=== PATIENT | female | born 1985 | race Two or more races ===

== ENCOUNTER 2018-10-09 12:47 | Emergency (ER) | payer SELFPAY ==
[~2018-10-09] VITALS: Ht 167.6 cm; Wt 54.4 kg
--- NOTE | 2018-10-09 12:49 | NUR ---
PT BIB FRIEND C/O POSS ALLERGIC RXN X 1 DAY , SWOLLEN LIP, PT AAOX4, RESPIRATIONS EVEN AND UNLABORED, NO SOB, NAD NOTED, VSS, PENDING MD BARBA
[2018-10-09] MEDS ORDERED: FAMOTIDINE (20 MG) 20 MG TABLET PO ONE (13:00)
[2018-10-09] MEDS ORDERED: predniSONE 20 MG TABLET PO ONE (13:00)
[2018-10-09] MEDS ORDERED: diphenhydrAMINE HCL ELIX 25 MG/10 ML UDC PO ONE (13:00)
[2018-10-09] MEDS ORDERED: diphenhydrAMINE HCL ELIX 25 MG/10 ML UDC ONE (13:04)
[2018-10-09] MEDS ORDERED: FAMOTIDINE (20 MG) 20 MG TABLET ONE (13:04)
[2018-10-09] MEDS ORDERED: predniSONE 20 MG TABLET ONE (13:04)
--- NOTE | 2018-10-09 13:55 | NUR ---
Patient discharged to home in stable condition. Written and verbal after care instructions given. Patient verbalizes understanding of instruction.
[2018-10-09 13:56] VITALS: BP 130/80
== END 2018-10-09 13:57 | disposition home or self-care (01) ==
LOC: ER 12:48
DX: T78.1XXA Other adverse food reactions, not elsewhere classified, initial encounter (principal); R22.0 Localized swelling, mass and lump, head; Z98.890 Other specified postprocedural states; Z60.2 Problems related to living alone; X58.XXXA Exposure to other specified factors, initial encounter
CPT/HCPCS: 99284; A4606; J7512; Q0163; Z7610